=== PATIENT | male | born 1975 | race Caucasian/White ===

== ENCOUNTER 2018-11-01 16:43 | Inpatient (IN) | payer OTHER ==
--- NOTE | 2018-11-01 19:20 | HP ---
CIWA Score - Admission Criteria [facility]ASAS Guidelines: Admission for Medically Managed Detox: Requires at least one of the followin. CIWA greater than 12 2. Seizures within the past 24 hours 3. Delirium tremens within the past 24 hours 4. Hallucinations within the past 24 hours 5. Acute intervention needed for co occurring medical disorder 6. Acute intervention needed for co occurring psychiatric disorder 7. Severe withdrawal that cannot be handled at a lower level of care (continued vomiting, continued diarrhea, abnormal vital signs) requiring intravenous medication and/or fluids 8. Admission ROS [facility] Chief Complaint: " rehab" Allergies/Adverse Reactions: Allergies Allergy/AdvReac Type Severity Reaction Status Date / Time No Known Allergies Allergy Verified 11/01/18 18:11 History of Present Illness: 43 yo male with hx of nicotine, marijuana, and opioid dependence on Suboxone MAT. Patient reports he was sent to rehab by his parole office. PMHX: sciatica , OA. Denies psych hx. Denies suicidal / homicidal ideation. Denies hx of seizures or blackouts. Patient reports was release from detention October 13, 2017, linked to [place] for Suboxone maintenance. Others' Prescriptions Patient Name: Ashok Sanchez Date: 1975 Address: [address] [place] [address] Sex: Male Rx Written Rx Dispensed Drug Quantity Days Supply Prescriber Name 10/17/2018 10/17/2018 buprenorphine-naloxone 8-2 mg sl tablet 14 7 Justin Perez Exam Limitations: No Limitations - Ebola screening Have you traveled outside of the country in the last 21 days: No Have you had contact with anyone from an Ebola affected area: No Do you have a fever: No - Review of Systems Constitutional: No Symptoms Reported EENT: reports: No Symptoms Reported Respiratory: reports: No Symptoms reported Cardiac: reports: No Symptoms Reported GI: reports: No Symptoms Reported : reports: No Symptoms Reported Musculoskeletal: reports: No Symptoms Reported Integumentary: reports: No Symptoms Reported Neuro: reports: No Symptoms reported Endocrine: reports: No Symptoms Reported Hematology: reports: No Symptoms Reported Psychiatric: reports: Orientated x3 Other Systems: Reviewed and Negative Patient History - Patient Medical History Hx Anemia: No Hx Asthma: No Hx Chronic Obstructive Pulmonary Disease (COPD): No Hx Cancer: No Hx Cardiac Disorders: No Hx Congestive Heart Failure: No Hx Hypertension: No Hx Hypercholesterolemia: No Hx Pacemaker: No HX Cerebrovascular Accident: No Hx Seizures: No Hx Dementia: No Hx Diabetes: No Hx Gastrointestinal Disorders: No Hx Liver Disease: No Hx Genitourinary Disorders: No Hx Sexually Transmitted Disorders: No Hx Renal Disease (ESRD): No Hx Thyroid Disease: No Hx Human Immunodeficiency Virus (HIV): No Hx Hepatitis C: No Hx Depression: No Hx Suicide Attempt: No Hx Bipolar Disorder: No Hx Schizophrenia: No - Patient Surgical History Past Surgical History: No - PPD History Previous Implant?: No PPD to be Administered?: Yes - Smoking Cessation Smoking history: Current every day smoker Have you smoked in the past 12 months: Yes Aproximately how many cigarettes per day: 20 Hx Chewing Tobacco Use: No Initiated information on smoking cessation: Yes 'Breaking Loose' booklet given: 11/01/18 - Substance & Tx. History Hx Alcohol Use: No Hx Substance Use: No Hx Substance Use Treatment: No - Substances abused Heroin Other (specify): SNIFF Frequency: Daily Amount used: 7 BAGS Age of first use: 16 Date of last use: 11/29/10 Marijuana/Hashish Substance route: Smoking Frequency: Daily Amount used: 2 joints Age of first use: 12 Date of last use: 10/13/18 Family Disease History - Family Disease History Family Disease History: [place]: Grandparent (), Other: Father (alcoholism ), Mother (alcoholism ) Admission Physical Exam [facility] Physical General Appearance: Yes: Nourished, Appropriately Dressed HEENTM: Yes: EOMI, Hearing grossly Normal, Normal ENT Inspection, Normocephalic , Normal Voice, Pharynx Normal, Tm's normal Respiratory: Yes: Chest Non-Tender, Normal Breath Sounds, No Respiratory Distress, No Accessory Muscle Use Neck: Yes: Within Normal Limits Breast: Yes: Breast Exam Deferred Cardiology: Yes: Regular Rhythm, Regular Rate Abdominal: Yes: Normal Bowel Sounds, Non Tender, Flat Genitourinary: Yes: Within Normal Limits Back: Yes: Normal Inspection Musculoskeletal: Yes: full range of Motion, Gait Steady, Pelvis Stable Extremities: Yes: Normal Capillary Refill, Normal Inspection, Normal Range of Motion, Non-Tender 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, Fully Oriented, Alert, Motor Strength 5/5, Normal Mood/Affect, Normal Response Integumentary: Yes: Normal Color, Dry, Warm Lymphatic: Yes: Within Normal Limits - Diagnostic (1) Nicotine dependence Current Visit: Yes Status: Acute Qualifiers: Nicotine product type: cigarettes (2) Opioid dependence on agonist therapy Current Visit: Yes Status: Chronic (3) Cannabis dependence Current Visit: Yes Status: Acute Breathalyzer - Breathalyzer Breathalyzer: 0 Urine Drug Screen - Test Device Lot number: [id number] Expiration date: 07/01/20 - Control Is test valid?: Yes - Results Drug screen NEGATIVE: No Urine drug screen results: THC-Marijuana, BUP-Suboxone Inpatient Rehab Admission - Rehab Decision to Admit Inpatient rehab admission?: No - Initial Determination Are CD services needed?: Yes Free of communicable disease: Yes Not in need of hospitalization: Yes - Rehab Admission Criteria Previous failed treatment: No Poor recovery environment: Yes Comorbidities: Yes Lacks judgement: Yes Patient is meeting Inpatient Rehab admission criteria:: Yes
[2018-11-01] MEDS ORDERED: IBUPROFEN 400 MG TABLET (FP) PO PRN (19:31)
[2018-11-01] MEDS ORDERED: P-EPHED 60MG/TRIPROLIDI 2.5MG TABLET PO PRN (19:31)
[2018-11-01] MEDS ORDERED: MAGNESIUM CITRATE 300 ML BOTTLE PO PRN (19:31)
[2018-11-01] MEDS ORDERED: MAG HYDROX/AL HYDROX/SIMETH 30 ML UNIT-DOSE CUP PO PRN (19:31)
[2018-11-01] MEDS ORDERED: MAGNESIUM HYDROX 2400MG/30ML ORAL SUSPENSION 30 ML CUP PO PRN (19:31)
[2018-11-01] MEDS ORDERED: guaiFENesin 200 MG/10 ML 10 ML UNIT-DOSE CUPS PO PRN (19:31)
[2018-11-01] MEDS ORDERED: MENTHOL/PHENOL 1 EACH UD MM PRN (19:31)
[2018-11-01] MEDS ORDERED: LOPERAMIDE HCL 2 MG CAPSULE PO PRN (19:31)
[2018-11-01] MEDS: THIAMINE HCL 100 MG TABLET (FP) PO SCH (21:43)
[2018-11-01] MEDS ORDERED: TUBERCULIN PPD 5 TU/0.1ML VIAL ID ONE (21:44)
[2018-11-01] MEDS ORDERED: MELATONIN 5 MG TABLETS PO PRN (22:00)
[2018-11-01 23:09] LABS: PH,URINE 6.5 (5.0-8.0); URINE APPEARANCE CLEAR; URINE BILIRUBIN NEGATIVE (NEGATIVE); URINE COLOR YELLOW; URINE GLUCOSE (UA) NEGATIVE (NEGATIVE); URINE KETONE NEGATIVE (NEGATIVE); URINE LEUK ESTERASE NEGATIVE (NEGATIVE); URINE NITRITE NEGATIVE (NEGATIVE); URINE PROTEIN NEGATIVE (NEGATIVE); URINE UROBILINOGEN 0.2 mg/dL (0.2-1.0)
--- NOTE | 2018-11-02 10:08 | EKG ---
Test Reason : Blood Pressure : / mmHG Vent. Rate : 068 BPM Atrial Rate : 068 BPM P-R Int : 166 ms QRS Dur : 108 ms QT Int : 414 ms P-R-T Axes : 071 068 067 degrees QTc Int : 440 ms NORMAL SINUS RHYTHM INCOMPLETE RIGHT BUNDLE BRANCH BLOCK BORDERLINE ECG NO PREVIOUS ECGS AVAILABLE Confirmed by SNEHA JO MD ([id number]) on 11/02/2018 10:08:11 AM Referred By: Confirmed By:SNEHA JO MD
[2018-11-02] MEDS: NICOTINE 21 MG/24 HOURS TOPICAL PATCH TD SCH (10:17)
[2018-11-02] MEDS: BUPRENORPHINE/NALOXONE 8 MG/2 MG FILM PACKET SL SCH (10:17)
[2018-11-02] MEDS: PRENATAL VITAMINS W/ FOLIC ACID TABLET (FP) PO SCH (10:17)
[2018-11-02 12:34] LABS: HEMATOCRIT 41.2 % (35.4-49); HEMOGLOBIN 13.6 GM/dL (11.7-16.9); MCH 30.8 pg (25.7-33.7); MEAN CELL VOLUME 93.4 fl (80-96); MEAN PLT VOLUME 8.1 fl (7.5-11.1); PLATELET COUNT 260 K/MM3 (134-434); RBC 4.41 M/mm3 (4.00-5.60); RDW 14.5 % (11.9-15.9); WHITE BLOOD COUNT 6.9 K/mm3 (4.0-10.0)
[2018-11-02 12:38] LABS: ALK PHOS 62 U/L (45-117); ANION GAP 6 MMOL/L (8-16); BILIRUBIN,TOTAL 0.4 mg/dL (0.2-1); BLOOD UREA NITROGEN 15 mg/dL (7-18); CALCIUM 8.6 mg/dL (8.5-10.1); CHLORIDE 104 mmol/L (98-107); CO2 30 mmol/L (21-32); CREATININE 0.9 mg/dL (0.55-1.3); GLUCOSE,RANDOM 66 mg/dL (74-106); POTASSIUM 4.3 mmol/L (3.5-5.1); SGOT/AST 15 U/L (15-37); SGPT/ALT 28 U/L (13-61); SODIUM 140 mmol/L (136-145); TOT PROT 6.7 g/dl (6.4-8.2)
[2018-11-02] MEDS: THIAMINE HCL 100 MG TABLET (FP) PO SCH (21:59)
[2018-11-03] MEDS ORDERED: PT OWN MED DRAWER 7, Y5N ONE (08:34)
[2018-11-03] MEDS: PRENATAL VITAMINS W/ FOLIC ACID TABLET (FP) PO SCH (10:00)
[2018-11-03] MEDS: NICOTINE 21 MG/24 HOURS TOPICAL PATCH TD SCH (10:00)
[2018-11-03] MEDS: BUPRENORPHINE/NALOXONE 8 MG/2 MG FILM PACKET SL SCH (10:00)
[2018-11-03] MEDS: THIAMINE HCL 100 MG TABLET (FP) PO SCH (22:37)
[2018-11-04] MEDS: PRENATAL VITAMINS W/ FOLIC ACID TABLET (FP) PO SCH (09:50)
[2018-11-04] MEDS: BUPRENORPHINE/NALOXONE 8 MG/2 MG FILM PACKET SL SCH (09:50)
[2018-11-04] MEDS: NICOTINE 21 MG/24 HOURS TOPICAL PATCH TD SCH (09:51)
[2018-11-04] MEDS: THIAMINE HCL 100 MG TABLET (FP) PO SCH (22:17)
[2018-11-05] MEDS: BUPRENORPHINE/NALOXONE 8 MG/2 MG FILM PACKET SL SCH (09:48)
[2018-11-05] MEDS: NICOTINE 21 MG/24 HOURS TOPICAL PATCH TD SCH (09:48)
[2018-11-05] MEDS: PRENATAL VITAMINS W/ FOLIC ACID TABLET (FP) PO SCH (09:49)
[2018-11-05] MEDS: NICOTINE POLACRILEX 2 MG GUM BC PRN (18:49)
[2018-11-05] MEDS: THIAMINE HCL 100 MG TABLET (FP) PO SCH (21:40)
[2018-11-06] MEDS: BUPRENORPHINE/NALOXONE 8 MG/2 MG FILM PACKET SL SCH (09:40)
[2018-11-06] MEDS: PRENATAL VITAMINS W/ FOLIC ACID TABLET (FP) PO SCH (09:40)
[2018-11-06] MEDS: NICOTINE 21 MG/24 HOURS TOPICAL PATCH TD SCH (09:40)
[2018-11-06] MEDS: hydrOXYzine PAMOATE 25 MG CAPSULE (FP) PO PRN (19:31)
[2018-11-06] MEDS: ACETAMINOPHEN 325 MG TABLET (FP) PO PRN (19:32)
[2018-11-06] MEDS: THIAMINE HCL 100 MG TABLET (FP) PO SCH (22:10)
[2018-11-07] MEDS: PRENATAL VITAMINS W/ FOLIC ACID TABLET (FP) PO SCH (09:37)
[2018-11-07] MEDS: BUPRENORPHINE/NALOXONE 8 MG/2 MG FILM PACKET SL SCH (09:37)
[2018-11-07] MEDS: NICOTINE 21 MG/24 HOURS TOPICAL PATCH TD SCH (09:38)
--- NOTE | 2018-11-07 12:11 | PN ---
[facility] Progress Note Note: PATIENT SEEN FOR C/O BACK PAIN. REPORTS HX OF SCIATICA AND TREATED WITH MUSCLE RELAXER WHILE IN LONGTERM. PATIENT DENIES RECENT INJURIES AND REPORTS OCCASIONAL NUMBNESS AND TINGLING TO LEGS. Vital Signs Period Temp Pulse Resp BP Sys/Jones Pulse Ox Last 24 Hr 97.7 F 63 18-18 108/64 Laboratory Tests 11/01/18 11/02/18 11/02/18 22:00 08:40 08:40 WBC RBC Hgb Hct MCV MCH MCHC RDW Plt Count MPV Sodium 140 Potassium 4.3 Chloride 104 Carbon Dioxide 30 Anion Gap 6 L BUN 15 Creatinine 0.9 Creat Clearance w eGFR 91.25 Random Glucose 66 L Calcium 8.6 Total Bilirubin 0.4 AST 15 ALT 28 Alkaline Phosphatase 62 Total Protein 6.7 Albumin 4.0 Urine Color Yellow Urine Appearance Clear Urine pH 6.5 Ur Specific [place] 1.027 Urine Protein Negative Urine Glucose (UA) Negative Urine Ketones Negative Urine Blood Negative Urine Nitrite Negative Urine Bilirubin Negative Urine Urobilinogen 0.2 Ur Leukocyte Esterase Negative RPR Titer Nonreactive 11/02/18 08:50 WBC 6.9 RBC 4.41 Hgb 13.6 Hct 41.2 MCV 93.4 MCH 30.8 MCHC 33.0 RDW 14.5 Plt Count 260 MPV 8.1 Sodium Potassium Chloride Carbon Dioxide Anion Gap BUN Creatinine Creat Clearance w eGFR Random Glucose Calcium Total Bilirubin AST ALT Alkaline Phosphatase Total Protein Albumin Urine Color Urine Appearance Urine pH Ur Specific [place] Urine Protein Urine Glucose (UA) Urine Ketones Urine Blood Urine Nitrite Urine Bilirubin Urine Urobilinogen Ur Leukocyte Esterase RPR Titer PE: ALERT AND ORIENTED X 3 SKIN WARM AND DRY MILD TACTILE TENDERNESS TO LS SPINE AREA EXT FULL ROM, AMB AD ANDREW, NO EDEMA A/P: BACK PAIN WILL ORDER LIDOCAINE PATCH DAILY START FLEXERIL 10MG TID PRN CONTINUE TO MONITOR CLINICALLY
[2018-11-07] MEDS: LIDOCAINE 5% TOPICAL PATCH TP SCH (13:55)
[2018-11-07] MEDS: CYCLOBENZAPRINE HCL 10 MG TABLET (FP) PO PRN (13:55)
[2018-11-07] MEDS: NICOTINE POLACRILEX 2 MG GUM BC PRN (19:48)
[2018-11-07] MEDS: THIAMINE HCL 100 MG TABLET (FP) PO SCH (22:17)
[2018-11-07] MEDS: LIDOCAINE PATCH REMOVAL MC SCH (22:17)
[2018-11-08] MEDS: LIDOCAINE 5% TOPICAL PATCH TP SCH (09:43)
[2018-11-08] MEDS: BUPRENORPHINE/NALOXONE 8 MG/2 MG FILM PACKET SL SCH (09:43)
[2018-11-08] MEDS: NICOTINE 21 MG/24 HOURS TOPICAL PATCH TD SCH (09:43)
[2018-11-08] MEDS: PRENATAL VITAMINS W/ FOLIC ACID TABLET (FP) PO SCH (09:43)
[2018-11-08] MEDS: CYCLOBENZAPRINE HCL 10 MG TABLET (FP) PO PRN (13:57)
[2018-11-08] MEDS: LIDOCAINE PATCH REMOVAL MC SCH (21:53)
[2018-11-08] MEDS: THIAMINE HCL 100 MG TABLET (FP) PO SCH (21:53)
[2018-11-08] MEDS: NICOTINE POLACRILEX 2 MG GUM BC PRN (22:02)
[2018-11-09] MEDS: BUPRENORPHINE/NALOXONE 8 MG/2 MG FILM PACKET SL SCH (09:58)
[2018-11-09] MEDS: PRENATAL VITAMINS W/ FOLIC ACID TABLET (FP) PO SCH (09:58)
[2018-11-09] MEDS: LIDOCAINE 5% TOPICAL PATCH TP SCH (09:59)
[2018-11-09] MEDS: NICOTINE 21 MG/24 HOURS TOPICAL PATCH TD SCH (09:59)
[2018-11-09] MEDS: NICOTINE POLACRILEX 2 MG GUM BC PRN (10:02)
--- NOTE | 2018-11-09 11:12 | PN ---
S Progress Note (SOAP) Subjective: Small lesion on chin, states he noticed it in the AM Objective: 11/09/18 11:10 Small, scab developing, irritated, but no s/s of infection, no swelling, warmth , excessive redness or pain 11/09/18 11:12 Assessment: Postule 11/09/18 11:11 Plan: Ordered bacitracin.
[2018-11-09] MEDS: ACETAMINOPHEN 325 MG TABLET (FP) PO PRN (16:42)
[2018-11-09] MEDS: LIDOCAINE PATCH REMOVAL MC SCH (21:49)
[2018-11-09] MEDS: THIAMINE HCL 100 MG TABLET (FP) PO SCH (21:49)
[2018-11-10] MEDS: LIDOCAINE 5% TOPICAL PATCH TP SCH (09:51)
[2018-11-10] MEDS: PRENATAL VITAMINS W/ FOLIC ACID TABLET (FP) PO SCH (09:51)
[2018-11-10] MEDS: NICOTINE 21 MG/24 HOURS TOPICAL PATCH TD SCH (09:51)
[2018-11-10] MEDS: BACITRACIN 0.9 GM PACKET TP SCH (09:51)
[2018-11-10] MEDS: BUPRENORPHINE/NALOXONE 8 MG/2 MG FILM PACKET SL SCH (09:51)
[2018-11-10] MEDS: CYCLOBENZAPRINE HCL 10 MG TABLET (FP) PO PRN (10:16)
[2018-11-10] MEDS: NICOTINE POLACRILEX 2 MG GUM BC PRN ×2 (10:17→17:44)
[2018-11-10] MEDS: ACETAMINOPHEN 325 MG TABLET (FP) PO PRN (17:43)
[2018-11-10] MEDS: LIDOCAINE PATCH REMOVAL MC SCH (21:48)
[2018-11-10] MEDS: THIAMINE HCL 100 MG TABLET (FP) PO SCH (21:48)
[2018-11-11] MEDS: PRENATAL VITAMINS W/ FOLIC ACID TABLET (FP) PO SCH (09:45)
[2018-11-11] MEDS: BUPRENORPHINE/NALOXONE 8 MG/2 MG FILM PACKET SL SCH (09:45)
[2018-11-11] MEDS: BACITRACIN 0.9 GM PACKET TP SCH (09:45)
[2018-11-11] MEDS: LIDOCAINE 5% TOPICAL PATCH TP SCH (09:46)
[2018-11-11] MEDS: NICOTINE 21 MG/24 HOURS TOPICAL PATCH TD SCH (09:46)
[2018-11-11] MEDS: NICOTINE POLACRILEX 2 MG GUM BC PRN ×2 (13:12→21:14)
--- NOTE | 2018-11-11 14:48 | PN ---
[facility] Progress Note Note: PATIENT SEEN FOR C/O REDNESS ON CHIN AND BACK PAIN WITH SCIATICA. PATIENT REPORTS HE WAS RECENTLY INCARCERATED AT [facility] AND TREATED WITH GABAPENTIN 1200MG BID FOR SCIATICA AND STATES FLEXERIL INEFFECTIVE FOR PAIN RELIEF. PATIENT DENIES RECENT INJURY TO BACK. Vital Signs Temperature 98.2 F 11/11/18 06:45 Pulse Rate 62 11/11/18 06:45 Respiratory Rate 18 11/11/18 06:45 Blood Pressure 109/65 11/11/18 06:45 O2 Sat by Pulse Oximetry (%) Laboratory Tests 11/01/18 11/02/18 11/02/18 22:00 08:40 08:40 WBC RBC Hgb Hct MCV MCH MCHC RDW Plt Count MPV Sodium 140 Potassium 4.3 Chloride 104 Carbon Dioxide 30 Anion Gap 6 L BUN 15 Creatinine 0.9 Creat Clearance w eGFR 91.25 Random Glucose 66 L Calcium 8.6 Total Bilirubin 0.4 AST 15 ALT 28 Alkaline Phosphatase 62 Total Protein 6.7 Albumin 4.0 Urine Color Yellow Urine Appearance Clear Urine pH 6.5 Ur Specific [place] 1.027 Urine Protein Negative Urine Glucose (UA) Negative Urine Ketones Negative Urine Blood Negative Urine Nitrite Negative Urine Bilirubin Negative Urine Urobilinogen 0.2 Ur Leukocyte Esterase Negative RPR Titer Nonreactive 11/02/18 08:50 WBC 6.9 RBC 4.41 Hgb 13.6 Hct 41.2 MCV 93.4 MCH 30.8 MCHC 33.0 RDW 14.5 Plt Count 260 MPV 8.1 Sodium Potassium Chloride Carbon Dioxide Anion Gap BUN Creatinine Creat Clearance w eGFR Random Glucose Calcium Total Bilirubin AST ALT Alkaline Phosphatase Total Protein Albumin Urine Color Urine Appearance Urine pH Ur Specific [place] Urine Protein Urine Glucose (UA) Urine Ketones Urine Blood Urine Nitrite Urine Bilirubin Urine Urobilinogen Ur Leukocyte Esterase RPR Titer PE: ALERT AND ORIENTED X 3 SKIN WARM AND DRY, + INTACT REDDENED AREA TO CHIN WITH MILD SWELLING AND TENDERNESS. MS + TENDERNESS TO LS SPINE EXT FULL ROM, NO VISIBLE TREMORS, AMB AD ANDREW A/P: EARLY ABSCESS TO CHIN SCIATICA LBP WILL D/C FLEXERIL CONTINUE LIDOCAINE PATCH ORDERED START GABAPENTIN 300MG BID ORDER BACTRIM DS ONE TAB DAILY X 3 DAYS CONTINUE TO MONITOR CLINICALLY
[2018-11-11] MEDS: SULFAMETHOXAZOLE/TRIMETHOPRIM 800MG/160MG D.S. TABLET PO SCH (16:05)
[2018-11-11] MEDS: ACETAMINOPHEN 325 MG TABLET (FP) PO PRN (16:05)
[2018-11-11] MEDS: THIAMINE HCL 100 MG TABLET (FP) PO SCH (21:13)
[2018-11-11] MEDS: GABAPENTIN 300 MG CAPSULE (FP) PO SCH (21:13)
[2018-11-11] MEDS: LIDOCAINE PATCH REMOVAL MC SCH (21:13)
[2018-11-12] MEDS: PRENATAL VITAMINS W/ FOLIC ACID TABLET (FP) PO SCH (09:53)
[2018-11-12] MEDS: BACITRACIN 0.9 GM PACKET TP SCH (09:53)
[2018-11-12] MEDS: SULFAMETHOXAZOLE/TRIMETHOPRIM 800MG/160MG D.S. TABLET PO SCH (09:53)
[2018-11-12] MEDS: BUPRENORPHINE/NALOXONE 8 MG/2 MG FILM PACKET SL SCH (09:53)
[2018-11-12] MEDS: GABAPENTIN 300 MG CAPSULE (FP) PO SCH ×2 (09:54→21:18)
[2018-11-12] MEDS: LIDOCAINE 5% TOPICAL PATCH TP SCH (09:54)
[2018-11-12] MEDS: NICOTINE 21 MG/24 HOURS TOPICAL PATCH TD SCH (09:55)
[2018-11-12] MEDS: ACETAMINOPHEN 325 MG TABLET (FP) PO PRN (14:51)
[2018-11-12] MEDS: NICOTINE POLACRILEX 2 MG GUM BC PRN (21:18)
[2018-11-12] MEDS: THIAMINE HCL 100 MG TABLET (FP) PO SCH (21:18)
[2018-11-12] MEDS: LIDOCAINE PATCH REMOVAL MC SCH (21:19)
[2018-11-13] MEDS: BACITRACIN 0.9 GM PACKET TP SCH (09:57)
[2018-11-13] MEDS: BUPRENORPHINE/NALOXONE 8 MG/2 MG FILM PACKET SL SCH (09:57)
[2018-11-13] MEDS: LIDOCAINE 5% TOPICAL PATCH TP SCH (09:57)
[2018-11-13] MEDS: SULFAMETHOXAZOLE/TRIMETHOPRIM 800MG/160MG D.S. TABLET PO SCH (09:57)
[2018-11-13] MEDS: NICOTINE POLACRILEX 2 MG GUM BC PRN ×2 (09:57→21:07)
[2018-11-13] MEDS: GABAPENTIN 300 MG CAPSULE (FP) PO SCH ×2 (09:57→21:07)
[2018-11-13] MEDS: PRENATAL VITAMINS W/ FOLIC ACID TABLET (FP) PO SCH (09:57)
[2018-11-13] MEDS: NICOTINE 21 MG/24 HOURS TOPICAL PATCH TD SCH (09:57)
[2018-11-13] MEDS: THIAMINE HCL 100 MG TABLET (FP) PO SCH (21:07)
[2018-11-13] MEDS: hydrOXYzine PAMOATE 25 MG CAPSULE (FP) PO PRN (21:07)
[2018-11-13] MEDS: LIDOCAINE PATCH REMOVAL MC SCH (22:11)
[2018-11-14] MEDS: BACITRACIN 0.9 GM PACKET TP SCH (09:51)
[2018-11-14] MEDS: LIDOCAINE 5% TOPICAL PATCH TP SCH (09:51)
[2018-11-14] MEDS: BUPRENORPHINE/NALOXONE 8 MG/2 MG FILM PACKET SL SCH (09:51)
[2018-11-14] MEDS: PRENATAL VITAMINS W/ FOLIC ACID TABLET (FP) PO SCH (09:51)
[2018-11-14] MEDS: SULFAMETHOXAZOLE/TRIMETHOPRIM 800MG/160MG D.S. TABLET PO SCH (09:51)
[2018-11-14] MEDS: GABAPENTIN 300 MG CAPSULE (FP) PO SCH ×2 (09:51→21:24)
[2018-11-14] MEDS: NICOTINE 21 MG/24 HOURS TOPICAL PATCH TD SCH (09:51)
[2018-11-14] MEDS: NICOTINE POLACRILEX 2 MG GUM BC PRN ×2 (09:52→21:24)
[2018-11-14] MEDS: ACETAMINOPHEN 325 MG TABLET (FP) PO PRN ×2 (14:45→21:22)
--- NOTE | 2018-11-14 15:20 | PN ---
[facility] Progress Note Note: Notified by nursing staff patient hit right 4th finger on copy machine. Patient evaluated by provider and denies pain to finger. Right 4th digit with +ROM, no swelling or redness. Small amount of bleeding to nail bed. Bandaid applied. Continue to monitor clinically. Vital Signs Temperature 98.1 F 11/14/18 07:19 Pulse Rate 73 11/14/18 07:19 Respiratory Rate 18 11/14/18 07:19 Blood Pressure 107/73 11/14/18 07:19 O2 Sat by Pulse Oximetry (%)
--- NOTE | 2018-11-14 16:10 | PN ---
[facility] Progress Note Note: Patient scheduled for discharge tomorrow morning. Patient is scheduled for aftercare on 11/17/18 at [facility]. Pt states that he met all rehab goals and is motivated to maintain sobriety. Patient is medically stable at this time and denies SI/HI. Encouraged by Provider to follow up with PCP within one week of discharge to continue medical management and to attend group meetings to prevent relapse. Vital Signs Temperature 98.1 F 11/14/18 07:19 Pulse Rate 73 11/14/18 07:19 Respiratory Rate 18 11/14/18 07:19 Blood Pressure 107/73 11/14/18 07:19 O2 Sat by Pulse Oximetry (%) Laboratory Tests 11/01/18 11/02/18 11/02/18 22:00 08:40 08:40 WBC RBC Hgb Hct MCV MCH MCHC RDW Plt Count MPV Sodium 140 Potassium 4.3 Chloride 104 Carbon Dioxide 30 Anion Gap 6 L BUN 15 Creatinine 0.9 Creat Clearance w eGFR 91.25 Random Glucose 66 L Calcium 8.6 Total Bilirubin 0.4 AST 15 ALT 28 Alkaline Phosphatase 62 Total Protein 6.7 Albumin 4.0 Urine Color Yellow Urine Appearance Clear Urine pH 6.5 Ur Specific [place] 1.027 Urine Protein Negative Urine Glucose (UA) Negative Urine Ketones Negative Urine Blood Negative Urine Nitrite Negative Urine Bilirubin Negative Urine Urobilinogen 0.2 Ur Leukocyte Esterase Negative RPR Titer Nonreactive 11/02/18 08:50 WBC 6.9 RBC 4.41 Hgb 13.6 Hct 41.2 MCV 93.4 MCH 30.8 MCHC 33.0 RDW 14.5 Plt Count 260 MPV 8.1 Sodium Potassium Chloride Carbon Dioxide Anion Gap BUN Creatinine Creat Clearance w eGFR Random Glucose Calcium Total Bilirubin AST ALT Alkaline Phosphatase Total Protein Albumin Urine Color Urine Appearance Urine pH Ur Specific [place] Urine Protein Urine Glucose (UA) Urine Ketones Urine Blood Urine Nitrite Urine Bilirubin Urine Urobilinogen Ur Leukocyte Esterase RPR Titer Ambulatory Orders Buprenorphine/Naloxone [Suboxone 8Mg/2Mg Sl Film -] 16 each SL DAILY 11/01/18 Buprenorphine/Naloxone [Suboxone 8Mg/2Mg Sl Film -] 1 each SL DAILY #7 film MDD 8mg/2mg 11/14/18 Naloxone HCl [Narcan] 4 mg NS PRN PRN #1 kit 11/14/18
[2018-11-14] MEDS: THIAMINE HCL 100 MG TABLET (FP) PO SCH (21:22)
[2018-11-14] MEDS: LIDOCAINE PATCH REMOVAL MC SCH (21:23)
[2018-11-15 07:03] VITALS: BP 125/72; PULSE 86; TEMP 97.7
[2018-11-15] MEDS: LIDOCAINE 5% TOPICAL PATCH TP SCH (09:03)
[2018-11-15] MEDS: BUPRENORPHINE/NALOXONE 8 MG/2 MG FILM PACKET SL SCH (09:03)
[2018-11-15] MEDS: BACITRACIN 0.9 GM PACKET TP SCH (09:03)
[2018-11-15] MEDS: GABAPENTIN 300 MG CAPSULE (FP) PO SCH (09:03)
[2018-11-15] MEDS: PRENATAL VITAMINS W/ FOLIC ACID TABLET (FP) PO SCH (09:03)
[2018-11-15] MEDS: NICOTINE 21 MG/24 HOURS TOPICAL PATCH TD SCH (09:04)
== END 2018-11-15 09:25 | disposition home or self-care (01) | DRG 772 ==
LOC: YASAS 16:43 → Y3W 19:54
PROVIDERS: ADMIT Neuromusculoskeletal Medicine & OMM; ATTEND Neuromusculoskeletal Medicine & OMM
PROC: HZ42ZZZ Group Counseling for Substance Abuse Treatment, Cognitive-Behavioral (ICD-10-PCS; principal; 2018-11-01)
DX: F11.20 Opioid dependence, uncomplicated (principal); F14.20 Cocaine dependence, uncomplicated; F17.210 Nicotine dependence, cigarettes, uncomplicated; M54.40 Lumbago with sciatica, unspecified side; L02.01 Cutaneous abscess of face
CPT/HCPCS: 36415; 80053; 81003; 85027; 86593; 93005; 93010